=== PATIENT | male | born 1990 | race Two or more races ===

== ENCOUNTER 2020-08-31 08:50 | Emergency (ER) | payer OTHER ==
[~2020-08-31] VITALS: Ht 165.1 cm; Wt 81.5 kg
--- NOTE | 2020-08-31 10:10 | REP ---
INDICATION: sneezed, felt pop, R ant pain 10th-12th rib. COMPARISON: None. TECHNIQUE: Five views including PA chest. FINDINGS: PA chest radiograph is normal. There is no evidence of pneumothorax or hydrothorax. Mediastinum is not widened. Heart size is normal. The lung belle are clear. Pleural angles are sharp. Multiple views of the right rib cage show no visible rib fracture or bony destructive lesion. IMPRESSION: Negative right ribs series. <Electronically signed by Chapin Evans > 08/31/20 [id number]
[2020-08-31 10:36] VITALS: BP 129/78
== END 2020-08-31 10:42 | disposition home or self-care (01) ==
LOC: M ED 08:50
DX: S29.011A Strain of muscle and tendon of front wall of thorax, initial encounter (principal); X58.XXXA Exposure to other specified factors, initial encounter; Y92.9 Unspecified place or not applicable; Y93.9 Activity, unspecified; Y99.9 Unspecified external cause status